=== PATIENT | female | born 1975 | race Caucasian/White ===

== ENCOUNTER 2018-10-05 13:12 | Emergency (ER) | payer OTHER, MEDICAID, SELFPAY ==
[2018-10-05 13:16] VITALS: BP 138/102; PULSE 97; RESP 12; TEMP 36.7; O2SAT 96; BMI 34.4
--- NOTE | 2018-10-05 13:32 | DI.RAD.S_ITS ---
PROCEDURE: XR CHEST 2V INDICATIONS: heart racing, chest heaviness TECHNIQUE: 2 views of the chest were acquired. COMPARISON: None. FINDINGS: Surgical changes and devices: None. Lungs and pleura: Lungs are clear. No pleural effusions or pneumothorax. Mediastinum: Mediastinal contours are normal. Heart size is normal. Bones and chest wall: No suspicious bony abnormalities. Soft tissues appear unremarkable. IMPRESSION: 1. No acute cardiopulmonary disease. Dictated by: Iban Spaulding M.D. on 10/05/2018 at 14:39 Approved by: Iban Spaulding M.D. on 10/05/2018 at 14:39
--- NOTE | 2018-10-05 13:46 | DI.CT.S_ITS ---
PROCEDURE: CT HEAD/BRAIN WO CON INDICATIONS: headache, htn TECHNIQUE: Noncontrast 4.5 mm thick angled axial sections acquired from the foramen magnum to the vertex, with coronal and sagittal reformats. For radiation dose reduction, the following was used: automated exposure control, adjustment of mA and/or kV according to patient size. COMPARISON: None. FINDINGS: Image quality: Excellent. CSF spaces: Basal cisterns are patent. No extra-axial fluid collections. Ventricles are normal in size and shape. Brain: No intracranial hemorrhage, mass, or mass effect. There are scattered small indistinct white matter hypodensities including small hypodense foci within the right internal capsule. There is also mild heterogeneity of the bilateral caudate heads and thalami which may be artifactual. Skull and face: Calvarium and visualized facial bones are intact, without suspicious lesions. Sinuses: Visualized sinuses and mastoids are clear. IMPRESSION: 1. No definite acute intracranial abnormality. 2. Small hypodense foci within the periventricular and subcortical white matter are nonspecific and may represent mild chronic small vessel ischemic changes. 3. Heterogeneous appearance of the caudate heads and thalami bilaterally may be artifactual or represent sequelae of chronic ischemic changes. If clinically indicated, recommend further evaluation with MRI. Dictated by: Iban Spaulding M.D. on 10/05/2018 at 14:12 Approved by: Iban Spaulding M.D. on 10/05/2018 at 14:16
[2018-10-05 13:47] LABS: Add Manual Diff / Slide Review NO; Basophils Absolute Auto 100 /uL (0-100); Basophils Percent Auto 0.9 % (0-2); Eosinophils Absolute Auto 100 /uL (0-450); Eosinophils Percent Auto 1.3 % (2-4); Hematocrit 46.4 % (36-46); Hemoglobin 15.8 g/dL (12.0-16.0); Lymphocytes Absolute Auto 3000 /uL (1100-4500); Lymphocytes Percent Auto 35.6 % (25-40); Mean Corpuscular Hemoglobin 30.1 PG (26-34); Mean Corpuscular Volume 88.6 fL (80-100); Monocytes Absolute Auto 500 /uL (0-900); Monocytes Percent Auto 6.4 % (3-14); Neutrophils Absolute Auto 4700 /uL (1500-7000); Neutrophils Percent Auto 55.8 % (50-75); Platelet Count 395 X10^3/uL (150-400); Red Blood Cell Count 5.24 X10^6/uL (4.0-5.2); Red Cell Distribution Width 13.9 % (11.6-14.8); White Blood Cell Count 8.4 X10^3/uL (4.5-11.0)
[2018-10-05 13:58] LABS: Alanine Aminotransferase 25 IU/L (9-52); Albumin 4.6 g/dL (3.5-5.0); Albumin Globulin Ratio 1.2 (1.0-2.8); Alkaline Phosphatase 82 U/L (38-126); Aspartate Aminotransferase 23 IU/L (14-36); BUN Creatinine Ratio 18.3 (6-22); Bilirubin Total 0.4 mg/dL (0.2-1.3); Blood Urea Nitrogen 11 mg/dL (7-17); Calcium 9.5 mg/dL (8.4-10.2); Carbon Dioxide 26 mmol/L (22-32); Chloride 100 mmol/L (98-107); Creatine Kinase 34 U/L (30-135); Estimated Glomerular Filt Rate > 60.0 mL/min (>60); Globulin 3.8 g/dL (1.7-4.1); Glucose 110 mg/dL (70-100); HEMOLYSIS < 15 (0-50); Potassium 4.1 mmol/L (3.4-5.1); Sodium 137 mmol/L (137-145); Total Protein 8.4 g/dL (6.3-8.2)
[2018-10-05 14:09] VITALS: BP 126/83; PULSE 80; RESP 14; O2SAT 98
[2018-10-05 14:10] LABS: Troponin I < 0.012 ng/mL (0.01-0.034)
[2018-10-05] MEDS: ONDANSETRON 4 MG/2 ML INJ IV (14:34)
[2018-10-05] MEDS: SODIUM CHLORIDE 0.9% 1,000 ML 1000 ML IV (14:34)
[2018-10-05] MEDS: ACETAMINOPHEN 325 MG TABLET 975 MG PO (14:35)
[2018-10-05] MEDS: KETOROLAC 60 MG/2 ML VIAL 30 MG IV (15:04)
[2018-10-05 15:12] LABS: RBC Urine None Seen (0-5/HPF)
[2018-10-05 15:25] LABS: Bacteria Urine Many (>30); Culture Indicated Urine Cult Not Indicated; Squamous Epithelial Cell Urine 5-10 /HPF (0-5/HPF); WBC Urine 1-5/HPF (0-5/HPF)
[2018-10-05 15:55] VITALS: BP 132/81; PULSE 78; RESP 18; O2SAT 98
--- NOTE | 2018-10-05 21:06 | ED.GENADULT ---
HPI - General Adult <ROSI Rosenberg - Last Filed: 10/05/18 21:12> General Chief complaint: Hypertension Stated complaint: Blood Pressure high, not feeling well Time Seen by Provider: 10/05/18 13:48 Source: patient Mode of arrival: ambulatory Limitations: no limitations History of Present Illness HPI narrative: The patient is a 43-year-old female with history of hypertension migraines who presents with a chief complaint of high blood pressure, worst headache of her life and not feeling well. she complains of fever flushing and hot flashes. She states that her blood pressure last night was 180/110 and she had the worst headache of her life. She does have a history of migraines, states that this is worse and that she has not been being treated for her hypertension due to her relocation to the area. She states she was up all night urinating. She denies any overt fevers abdominal pain vomiting or diarrhea. She endorses sensitivity to light as well as nausea. She denies any chest pain, but complains of general malaise. She states she has been off of her hypertensive medication for awhile. Related Data Previous Rx's Medication Instructions Recorded nitrofurantoin monohyd/m-cryst 100 mg PO BID #20 cap 10/05/18 [Macrobid] Review of Systems <ROSI Rosenberg - Last Filed: 10/05/18 21:12> Review of Systems GENERAL: Denies chills, fatigue, malaise, fever, sweats. HEENT: Denies sinus pain, ear pain, sore throat, difficulty swallowing, dizziness. RESPIRATORY: Denies dyspnea, cough, wheezing, hemoptysis, sputum. CARDIOVASCULAR: See HPI GASTROINTESTINAL: Denies nausea, vomiting, abdominal pain, diarrhea, constipation, melena. : Denies dysuria, frequency, incontinence, hematuria, urinary retention. MUSCULOSKELETAL: denies weakness, joint pain, or bony pain SKIN: Denies rash, skin lesions, or other NEUROLOGIC: See HPI PSYCHIATRIC: No concerning psychosocial issues. 12 point review of systems is negative except for those stated above PFSH <ROSI Rosenberg - Last Filed: 10/05/18 21:12> Social History Smoking Status: Never smoker Social History Smoking Status: Never smoker Exam <ROSI Rosenberg - Last Filed: 10/05/18 21:12> Narrative Exam Narrative: GENERAL: This is a well-nourished, well-developed patient, no acute distress HEAD: Atraumatic. Normocephalic. No temporal or scalp tenderness. EYES: Pupils equal round and reactive. Extraocular motions intact. No scleral icterus. No injection or drainage. ENT: Nose without bleeding, purulent drainage or septal hematoma. Throat without erythema, tonsillar hypertrophy or exudate. Uvula midline. Airway patent. NECK: Trachea midline. No JVD or lymphadenopathy. Supple, nontender, no meningeal signs. CARDIOVASCULAR: Regular rate and rhythm without murmurs, gallops, or rubs. RESPIRATORY: Clear to auscultation. Breath sounds equal bilaterally. No wheezes, rales, or rhonchi. No cough. No increased respiratory effort. GASTROINTESTINAL: Abdomen soft, non-tender, nondistended. No hepato-splenomegaly, or palpable masses. No guarding. active bowel sounds. EXTREMITIES: No clubbing, cyanosis, or edema. No joint tenderness, effusion, or edema noted. BACK: Nontender without deformity or crepitance. No flank tenderness. NEURO: AOx3. Cranial nerves grossly intact. Strength is equal upper and lower extremities bilaterally. stable gait. SKIN: No rash or erythema. Initial Vital Signs Initial Vital Signs: Vital Signs Temperature 98.0 F 10/05/18 13:16 Pulse Rate 97 H 10/05/18 13:16 Respiratory Rate 12 10/05/18 13:16 Blood Pressure 138/102 H 10/05/18 13:16 Pulse Oximetry 96 10/05/18 13:16 <Alba Stephens MD - Last Filed: 10/06/18 12:05> Initial Vital Signs Initial Vital Signs: Vital Signs Temperature 98.0 F 10/05/18 13:16 Pulse Rate 97 H 10/05/18 13:16 Respiratory Rate 12 10/05/18 13:16 Blood Pressure 138/102 H 10/05/18 13:16 Pulse Oximetry 96 10/05/18 13:16 Course <ROSI Rosenberg - Last Filed: 10/05/18 21:12> Orders Ordered: Discontinued Medications Acetaminophen (Tylenol) 975 mg PO NOW ONE Stop: 10/05/18 14:13 Last Admin: 10/05/18 14:35 Dose: 975 mg Sodium Chloride (Normal Saline 0.9%) 1,000 mls @ 1,000 mls/hr IV BOLUS ONE Stop: 10/05/18 15:08 Last Infusion: 10/05/18 15:45 Dose: 0 mls/hr Admin: 10/05/18 14:34 Dose: 1,000 mls/hr Ketorolac Tromethamine (Toradol) 30 mg IV NOW ONE Stop: 10/05/18 15:01 Last Admin: 10/05/18 15:04 Dose: 30 mg Ondansetron HCl (Zofran) 4 mg IV NOW ONE Stop: 10/05/18 14:11 Last Admin: 10/05/18 14:34 Dose: 4 mg Vital Signs - 8 hr 10/05/18 13:16 10/05/18 14:09 10/05/18 15:55 Temperature 98.0 F Pulse Rate 97 H 80 78 Respiratory Rate 12 14 18 Blood Pressure 138/102 H 132/81 Blood Pressure [Left Arm] 126/83 Pulse Oximetry 96 98 98 <Alba Stephens MD - Last Filed: 10/06/18 12:05> Orders Ordered: Discontinued Medications Acetaminophen (Tylenol) 975 mg PO NOW ONE Stop: 10/05/18 14:13 Last Admin: 10/05/18 14:35 Dose: 975 mg Sodium Chloride (Normal Saline 0.9%) 1,000 mls @ 1,000 mls/hr IV BOLUS ONE Stop: 10/05/18 15:08 Last Infusion: 10/05/18 15:45 Dose: 0 mls/hr Admin: 10/05/18 14:34 Dose: 1,000 mls/hr Ketorolac Tromethamine (Toradol) 30 mg IV NOW ONE Stop: 10/05/18 15:01 Last Admin: 10/05/18 15:04 Dose: 30 mg Ondansetron HCl (Zofran) 4 mg IV NOW ONE Stop: 10/05/18 14:11 Last Admin: 10/05/18 14:34 Dose: 4 mg Vital Signs - 8 hr 10/05/18 13:16 10/05/18 14:09 10/05/18 15:55 Temperature 98.0 F Pulse Rate 97 H 80 78 Respiratory Rate 12 14 18 Blood Pressure 138/102 H 132/81 Blood Pressure [Left Arm] 126/83 Pulse Oximetry 96 98 98 Medical Decision Making <Linda Bland, CERTIFIED OPHTHALMIC TECHNOLOGIST-BC - Last Filed: 10/05/18 21:12> Lab Data Result diagrams: 10/05/18 13:39 10/05/18 13:39 Lab Results 10/05/18 10/05/18 10/05/18 Range/Units 13:39 13:39 14:45 WBC 8.4 (4.5-11.0) X10^3/uL RBC 5.24 H (4.0-5.2) X10^6/uL Hgb 15.8 (12.0-16.0) g/dL Hct 46.4 H (36-46) % MCV 88.6 (80-100) fL MCH 30.1 (26-34) PG MCHC 34.0 (30-36) % RDW 13.9 (11.6-14.8) % Plt Count 395 (150-400) X10^3/uL Neut % (Auto) 55.8 (50-75) % Lymph % (Auto) 35.6 (25-40) % White % (Auto) 6.4 (3-14) % Eos % (Auto) 1.3 L (2-4) % Baso % (Auto) 0.9 (0-2) % Neut # (Auto) 4700 (6111-5324) /uL Lymph # (Auto) 3000 (1145-5952) /uL White # (Auto) 500 (0-900) /uL Eos # (Auto) 100 (0-450) /uL Baso # (Auto) 100 (0-100) /uL Sodium 137 (137-145) mmol/L Potassium 4.1 (3.4-5.1) mmol/L Chloride 100 (98-107) mmol/L Carbon Dioxide 26 (22-32) mmol/L BUN 11 (7-17) mg/dL Creatinine 0.60 (0.52-1.04) mg/dL Estimated GFR > 60.0 (>60) mL/min BUN/Creatinine Ratio 18.3 (6-22) Glucose 110 H (70-100) mg/dL Calcium 9.5 (8.4-10.2) mg/dL Total Bilirubin 0.4 (0.2-1.3) mg/dL AST 23 (14-36) IU/L ALT 25 (9-52) IU/L Alkaline Phosphatase 82 (38-126) U/L Total Creatine Kinase 34 (30-135) U/L CK-MB (CK-2) TNP CK-MB (CK-2) Rel Index TNP Troponin I < 0.012 (0.01-0.034) ng/mL Total Protein 8.4 H (6.3-8.2) g/dL Albumin 4.6 (3.5-5.0) g/dL Globulin 3.8 (1.7-4.1) g/dL Albumin/Globulin Ratio 1.2 (1.0-2.8) Urine RBC None seen (0-5/HPF) Urine WBC 1-5/hpf (0-5/HPF) Ur Squamous Epith Cells 5-10 /hpf H (0-5/HPF) Urine Bacteria Many (>30) H (None) Ur Culture Indicated? Cult not indicated Point of Care Testing Test Results Negative Urine Dip Bedside Urine Glucose Negative Bedside Urine Bilirubin - Negative Bedside Urine Ketone - Negative Urine Specific [place] 1.025 Bedside Urine Occult Blood - Negative Bedside Urine Protein + 30 Bedside Urine Urobilinogen - Negative Bedside Urine Nitrite - Negative Bedside Urine Leukocytes + 70 Esterase Point of care testing: Point of Care Testing Test Results Negative Urine Dip Bedside Urine Glucose Negative Bedside Urine Bilirubin - Negative Bedside Urine Ketone - Negative Urine Specific [place] 1.025 Bedside Urine Occult Blood - Negative Bedside Urine Protein + 30 Bedside Urine Urobilinogen - Negative Bedside Urine Nitrite - Negative Bedside Urine Leukocytes + 70 Esterase Imaging Data Chest x-ray: Radiologist's impression: [address] [address] XRay Report Signed Patient: Missy Wright MMR#: [id number] : 1975Acct:[id number] Age/Sex: 43 / FDate of Service: 10/05/18 Loc: ED Accession Number: [id number] Procedure: XR chest 2V Ordering Provider: Alba Stephens MD PROCEDURE: XR CHEST 2V INDICATIONS: heart racing, chest heaviness TECHNIQUE: 2 views of the chest were acquired. COMPARISON: None. FINDINGS: Surgical changes and devices: None. Lungs and pleura: Lungs are clear. No pleural effusions or pneumothorax. Mediastinum: Mediastinal contours are normal. Heart size is normal. Bones and chest wall: No suspicious bony abnormalities. Soft tissues appear unremarkable. IMPRESSION: 1. No acute cardiopulmonary disease. Dictated by: Iban Spaulding M.D. on 10/05/2018 at 14:39 Approved by: Iban Spaulding M.D. on 10/05/2018 at 14:39 CT scan - head: Radiologist's impression: [address] [address] [address] Scan Report Signed Patient: Missy Wright MMR#: [id number] : 1975Acct:[id number] Age/Sex: 43 / FDate of Service: 10/05/18 Loc: ED Accession Number: [id number] Procedure: CT head/brain wo con [facility] CT HEAD/BRAIN WO CON INDICATIONS: headache, htn TECHNIQUE: Noncontrast 4.5 mm thick angled axial sections acquired from the foramen magnum to the vertex, with coronal and sagittal reformats. For radiation dose reduction, the following was used: automated exposure control, adjustment of mA and/or kV according to patient size. COMPARISON: None. FINDINGS: Image quality: Excellent. CSF spaces: Basal cisterns are patent. No extra-axial fluid collections. Ventricles are normal in size and shape. Brain: No intracranial hemorrhage, mass, or mass effect. There are scattered small indistinct white matter hypodensities including small hypodense foci within the right internal capsule. There is also mild heterogeneity of the bilateral caudate heads and thalami which may be artifactual. Skull and face: Calvarium and visualized facial bones are intact, without suspicious lesions. Sinuses: Visualized sinuses and mastoids are clear. IMPRESSION: 1. No definite acute intracranial abnormality. 2. Small hypodense foci within the periventricular and subcortical white matter are nonspecific and may represent mild chronic small vessel ischemic changes. 3. Heterogeneous appearance of the caudate heads and thalami bilaterally may be artifactual or represent sequelae of chronic ischemic changes. If clinically indicated, recommend further evaluation with MRI. Dictated by: Iban Spaulding M.D. on 10/05/2018 at 14:12 Approved by: Iban Spaulding M.D. on 10/05/2018 at 14:16 ECG Data Attestation: I personally reviewed and interpreted this ECG as follows: MDM Narrative Medical decision making narrative: The patient presents with vague complaints including severe headache with her hypertension episode. Thus I did get a head CT which shows no acute intracranial abnormality. There are signs of chronic changes, which I reviewed with Dr Stephens as well as the patient. Her labs are grossly normal. she has a normal troponin, her electrolytes are within normal limits, and she is not anemic. She does have lots of bacteria on her urinalysis This I will initiate treatment with Macrobid with a urine culture pending. I discussed at length signs of worsening including flank pain and fevers. This could explain her general malaise over the past few days. She has no signs of renal injury on her labs despite her hypertension episodes. I encouraged her to follow up with primary care provider and discussed return precautions including shortness of breath chest pain concern of heart attack or stroke. Patient was treated for her headache with Toradol with good result. Patient was discharged mother with no questions or concerns upon discharge and stated understanding of return precautions as well as following up with primary care. <Alba Stephens MD - Last Filed: 10/06/18 12:05> Lab Data Lab Results 10/05/18 10/05/18 10/05/18 Range/Units 13:39 13:39 14:45 WBC 8.4 (4.5-11.0) X10^3/uL RBC 5.24 H (4.0-5.2) X10^6/uL Hgb 15.8 (12.0-16.0) g/dL Hct 46.4 H (36-46) % MCV 88.6 (80-100) fL MCH 30.1 (26-34) PG MCHC 34.0 (30-36) % RDW 13.9 (11.6-14.8) % Plt Count 395 (150-400) X10^3/uL Neut % (Auto) 55.8 (50-75) % Lymph % (Auto) 35.6 (25-40) % White % (Auto) 6.4 (3-14) % Eos % (Auto) 1.3 L (2-4) % Baso % (Auto) 0.9 (0-2) % Neut # (Auto) 4700 (2975-1760) /uL Lymph # (Auto) 3000 (5383-5923) /uL White # (Auto) 500 (0-900) /uL Eos # (Auto) 100 (0-450) /uL Baso # (Auto) 100 (0-100) /uL Sodium 137 (137-145) mmol/L Potassium 4.1 (3.4-5.1) mmol/L Chloride 100 (98-107) mmol/L Carbon Dioxide 26 (22-32) mmol/L BUN 11 (7-17) mg/dL Creatinine 0.60 (0.52-1.04) mg/dL Estimated GFR > 60.0 (>60) mL/min BUN/Creatinine Ratio 18.3 (6-22) Glucose 110 H (70-100) mg/dL Calcium 9.5 (8.4-10.2) mg/dL Total Bilirubin 0.4 (0.2-1.3) mg/dL AST 23 (14-36) IU/L ALT 25 (9-52) IU/L Alkaline Phosphatase 82 (38-126) U/L Total Creatine Kinase 34 (30-135) U/L CK-MB (CK-2) TNP CK-MB (CK-2) Rel Index TNP Troponin I < 0.012 (0.01-0.034) ng/mL Total Protein 8.4 H (6.3-8.2) g/dL Albumin 4.6 (3.5-5.0) g/dL Globulin 3.8 (1.7-4.1) g/dL Albumin/Globulin Ratio 1.2 (1.0-2.8) Urine RBC None seen (0-5/HPF) Urine WBC 1-5/hpf (0-5/HPF) Ur Squamous Epith Cells 5-10 /hpf H (0-5/HPF) Urine Bacteria Many (>30) H (None) Ur Culture Indicated? Cult not indicated Point of Care Testing Test Results Negative Urine Dip Bedside Urine Glucose Negative Bedside Urine Bilirubin - Negative Bedside Urine Ketone - Negative Urine Specific [place] 1.025 Bedside Urine Occult Blood - Negative Bedside Urine Protein + 30 Bedside Urine Urobilinogen - Negative Bedside Urine Nitrite - Negative Bedside Urine Leukocytes + 70 Esterase Point of care testing: Point of Care Testing Test Results Negative Urine Dip Bedside Urine Glucose Negative Bedside Urine Bilirubin - Negative Bedside Urine Ketone - Negative Urine Specific [place] 1.025 Bedside Urine Occult Blood - Negative Bedside Urine Protein + 30 Bedside Urine Urobilinogen - Negative Bedside Urine Nitrite - Negative Bedside Urine Leukocytes + 70 Esterase Discharge Plan Departure Patient Disposition: Home Clinical Impression: UTI (urinary tract infection) Qualifiers: Urinary tract infection type: site unspecified Hematuria presence: without hematuria Qualified Code(s): N39.0 - Urinary tract infection, site not specified Headache Qualifiers: Headache type: other headache syndrome Qualified Code(s): G44.89 - Other headache syndrome Discharge Date/Time: 10/05/18 15:55 Interventions: ED Discharge Assessment Last Done: 10/05/18 15:55 Instructions: DI for Urinary Tract Infection (UTI), DI for Headache Activity Restrictions/Additional Instructions: Your urine came back with many bacteria, so I am starting you on a antibiotic for urinary tract infection. Otherwise her blood pressure was good here, your chest x-ray was normal, your kidney function was good. Please follow up with the [facility] at [phone] in order to help get a primary care provider. Please come back to the emergency department for concern of heart attack or stroke, or acute concerns such as worsening of a urinary tract infection i.e. flank pain inability keep down fluids etc. Please put fluids and rest. Please come back to emergency department if you have any acute concerns. Prescriptions: New nitrofurantoin monohyd/m-cryst [Macrobid] 100 mg capsule 100 mg PO BID Qty: 20 RF: 0
--- NOTE | 2018-10-05 21:12 | ED_ITS ---
HPI - General Adult <ROSI Rosenberg - Last Filed: 10/05/18 21:12> General Chief complaint: Hypertension Stated complaint: Blood Pressure high, not feeling well Time Seen by Provider: 10/05/18 13:48 Source: patient Mode of arrival: ambulatory Limitations: no limitations History of Present Illness HPI narrative: The patient is a 43-year-old female with history of hypertension migraines who presents with a chief complaint of high blood pressure, worst headache of her life and not feeling well. she complains of fever flushing and hot flashes. She states that her blood pressure last night was 180/110 and she had the worst headache of her life. She does have a history of migraines, states that this is worse and that she has not been being treated for her hypertension due to her relocation to the area. She states she was up all night urinating. She denies any overt fevers abdominal pain vomiting or diarrhea. She endorses sensitivity to light as well as nausea. She denies any chest pain, but complains of general malaise. She states she has been off of her hypertensive medication for awhile. Related Data Previous Rx's Medication Instructions Recorded nitrofurantoin monohyd/m-cryst 100 mg PO BID #20 cap 10/05/18 [Macrobid] Review of Systems <ROSI Rosenberg - Last Filed: 10/05/18 21:12> Review of Systems GENERAL: Denies chills, fatigue, malaise, fever, sweats. HEENT: Denies sinus pain, ear pain, sore throat, difficulty swallowing, dizziness. RESPIRATORY: Denies dyspnea, cough, wheezing, hemoptysis, sputum. CARDIOVASCULAR: See HPI GASTROINTESTINAL: Denies nausea, vomiting, abdominal pain, diarrhea, constipation, melena. : Denies dysuria, frequency, incontinence, hematuria, urinary retention. MUSCULOSKELETAL: denies weakness, joint pain, or bony pain SKIN: Denies rash, skin lesions, or other NEUROLOGIC: See HPI PSYCHIATRIC: No concerning psychosocial issues. 12 point review of systems is negative except for those stated above PFSH <ROSI Rosenberg - Last Filed: 10/05/18 21:12> Social History Smoking Status: Never smoker Social History Smoking Status: Never smoker Exam <ROSI Rosenberg - Last Filed: 10/05/18 21:12> Narrative Exam Narrative: GENERAL: This is a well-nourished, well-developed patient, no acute distress HEAD: Atraumatic. Normocephalic. No temporal or scalp tenderness. EYES: Pupils equal round and reactive. Extraocular motions intact. No scleral icterus. No injection or drainage. ENT: Nose without bleeding, purulent drainage or septal hematoma. Throat without erythema, tonsillar hypertrophy or exudate. Uvula midline. Airway patent. NECK: Trachea midline. No JVD or lymphadenopathy. Supple, nontender, no meningeal signs. CARDIOVASCULAR: Regular rate and rhythm without murmurs, gallops, or rubs. RESPIRATORY: Clear to auscultation. Breath sounds equal bilaterally. No wheezes, rales, or rhonchi. No cough. No increased respiratory effort. GASTROINTESTINAL: Abdomen soft, non-tender, nondistended. No hepato- splenomegaly, or palpable masses. No guarding. active bowel sounds. EXTREMITIES: No clubbing, cyanosis, or edema. No joint tenderness, effusion, or edema noted. BACK: Nontender without deformity or crepitance. No flank tenderness. NEURO: AOx3. Cranial nerves grossly intact. Strength is equal upper and lower extremities bilaterally. stable gait. SKIN: No rash or erythema. Initial Vital Signs Initial Vital Signs: Vital Signs Temperature 98.0 F 10/05/18 13:16 Pulse Rate 97 H 10/05/18 13:16 Respiratory Rate 12 10/05/18 13:16 Blood Pressure 138/102 H 10/05/18 13:16 Pulse Oximetry 96 10/05/18 13:16 <Alba Stephens MD - Last Filed: 10/06/18 12:05> Initial Vital Signs Initial Vital Signs: Vital Signs Temperature 98.0 F 10/05/18 13:16 Pulse Rate 97 H 10/05/18 13:16 Respiratory Rate 12 10/05/18 13:16 Blood Pressure 138/102 H 10/05/18 13:16 Pulse Oximetry 96 10/05/18 13:16 Course <ROSI Rosenberg - Last Filed: 10/05/18 21:12> Orders Ordered: Discontinued Medications Acetaminophen (Tylenol) 975 mg PO NOW ONE Stop: 10/05/18 14:13 Last Admin: 10/05/18 14:35 Dose: 975 mg Sodium Chloride (Normal Saline 0.9%) 1,000 mls @ 1,000 mls/hr IV BOLUS ONE Stop: 10/05/18 15:08 Last Infusion: 10/05/18 15:45 Dose: 0 mls/hr Admin: 10/05/18 14:34 Dose: 1,000 mls/hr Ketorolac Tromethamine (Toradol) 30 mg IV NOW ONE Stop: 10/05/18 15:01 Last Admin: 10/05/18 15:04 Dose: 30 mg Ondansetron HCl (Zofran) 4 mg IV NOW ONE Stop: 10/05/18 14:11 Last Admin: 10/05/18 14:34 Dose: 4 mg Vital Signs - 8 hr 10/05/18 13:16 10/05/18 14:09 10/05/18 15:55 Temperature 98.0 F Pulse Rate 97 H 80 78 Respiratory Rate 12 14 18 Blood Pressure 138/102 H 132/81 Blood Pressure [Left Arm] 126/83 Pulse Oximetry 96 98 98 <Alba Stephens MD - Last Filed: 10/06/18 12:05> Orders Ordered: Discontinued Medications Acetaminophen (Tylenol) 975 mg PO NOW ONE Stop: 10/05/18 14:13 Last Admin: 10/05/18 14:35 Dose: 975 mg Sodium Chloride (Normal Saline 0.9%) 1,000 mls @ 1,000 mls/hr IV BOLUS ONE Stop: 10/05/18 15:08 Last Infusion: 10/05/18 15:45 Dose: 0 mls/hr Admin: 10/05/18 14:34 Dose: 1,000 mls/hr Ketorolac Tromethamine (Toradol) 30 mg IV NOW ONE Stop: 10/05/18 15:01 Last Admin: 10/05/18 15:04 Dose: 30 mg Ondansetron HCl (Zofran) 4 mg IV NOW ONE Stop: 10/05/18 14:11 Last Admin: 10/05/18 14:34 Dose: 4 mg Vital Signs - 8 hr 10/05/18 13:16 10/05/18 14:09 10/05/18 15:55 Temperature 98.0 F Pulse Rate 97 H 80 78 Respiratory Rate 12 14 18 Blood Pressure 138/102 H 132/81 Blood Pressure [Left Arm] 126/83 Pulse Oximetry 96 98 98 Medical Decision Making <Linda Bland, COTTAGE ATTENDANT-BC - Last Filed: 10/05/18 21:12> Lab Data Result diagrams: 10/05/18 13:39 10/05/18 13:39 Lab Results 10/05/18 10/05/18 10/05/18 Range/Units 13:39 13:39 14:45 WBC 8.4 (4.5-11.0) X10^3/uL RBC 5.24 H (4.0-5.2) X10^6/uL Hgb 15.8 (12.0-16.0) g/dL Hct 46.4 H (36-46) % MCV 88.6 (80-100) fL MCH 30.1 (26-34) PG MCHC 34.0 (30-36) % RDW 13.9 (11.6-14.8) % Plt Count 395 (150-400) X10^3/uL Neut % (Auto) 55.8 (50-75) % Lymph % (Auto) 35.6 (25-40) % [place] % (Auto) 6.4 (3-14) % Eos % (Auto) 1.3 L (2-4) % Baso % (Auto) 0.9 (0-2) % Neut # (Auto) 4700 (2400-7312) /uL Lymph # (Auto) 3000 (9471-6305) /uL [place] # (Auto) 500 (0-900) /uL Eos # (Auto) 100 (0-450) /uL Baso # (Auto) 100 (0-100) /uL Sodium 137 (137-145) mmol/L Potassium 4.1 (3.4-5.1) mmol/L Chloride 100 (98-107) mmol/L Carbon Dioxide 26 (22-32) mmol/L BUN 11 (7-17) mg/dL Creatinine 0.60 (0.52-1.04) mg/dL Estimated GFR > 60.0 (>60) mL/min BUN/Creatinine Ratio 18.3 (6-22) Glucose 110 H (70-100) mg/dL Calcium 9.5 (8.4-10.2) mg/dL Total Bilirubin 0.4 (0.2-1.3) mg/dL AST 23 (14-36) IU/L ALT 25 (9-52) IU/L Alkaline Phosphatase 82 (38-126) U/L Total Creatine Kinase 34 (30-135) U/L CK-MB (CK-2) TNP CK-MB (CK-2) Rel Index TNP Troponin I < 0.012 (0.01-0.034) ng/mL Total Protein 8.4 H (6.3-8.2) g/dL Albumin 4.6 (3.5-5.0) g/dL Globulin 3.8 (1.7-4.1) g/dL Albumin/Globulin Ratio 1.2 (1.0-2.8) Urine RBC None seen (0-5/HPF) Urine WBC 1-5/hpf (0-5/HPF) Ur Squamous Epith Cells 5-10 /hpf H (0-5/HPF) Urine Bacteria Many (>30) H (None) Ur Culture Indicated? Cult not indicated Point of Care Testing Test Results Negative Urine Dip Bedside Urine Glucose Negative Bedside Urine Bilirubin - Negative Bedside Urine Ketone - Negative Urine Specific [place] 1.025 Bedside Urine Occult Blood - Negative Bedside Urine Protein + 30 Bedside Urine Urobilinogen - Negative Bedside Urine Nitrite - Negative Bedside Urine Leukocytes + 70 Esterase Point of care testing: Point of Care Testing Test Results Negative Urine Dip Bedside Urine Glucose Negative Bedside Urine Bilirubin - Negative Bedside Urine Ketone - Negative Urine Specific [place] 1.025 Bedside Urine Occult Blood - Negative Bedside Urine Protein + 30 Bedside Urine Urobilinogen - Negative Bedside Urine Nitrite - Negative Bedside Urine Leukocytes + 70 Esterase Imaging Data Chest x-ray: Radiologist's impression: [address] [address] XRay Report Signed Patient: Missy Wright MMR#: [id number] : 1975Acct:[id number] Age/Sex: 43 / FDate of Service: 10/05/18 Loc: ED Accession Number: [id number] Procedure: XR chest 2V Ordering Provider: Alba Stephens MD PROCEDURE: XR CHEST 2V INDICATIONS: heart racing, chest heaviness TECHNIQUE: 2 views of the chest were acquired. COMPARISON: None. FINDINGS: Surgical changes and devices: None. Lungs and pleura: Lungs are clear. No pleural effusions or pneumothorax. Mediastinum: Mediastinal contours are normal. Heart size is normal. Bones and chest wall: No suspicious bony abnormalities. Soft tissues appear unremarkable. IMPRESSION: 1. No acute cardiopulmonary disease. Dictated by: Iban Spaulding M.D. on 10/05/2018 at 14:39 Approved by: Iban Spaulding M.D. on 10/05/2018 at 14:39 CT scan - head: Radiologist's impression: [address] [address] [address] Scan Report Signed Patient: Missy Wright MMR#: [id number] : 1975Acct:[id number] Age/Sex: 43 / FDate of Service: 10/05/18 Loc: ED Accession Number: [id number] Procedure: CT head/brain wo con [facility] CT HEAD/BRAIN WO CON INDICATIONS: headache, htn TECHNIQUE: Noncontrast 4.5 mm thick angled axial sections acquired from the foramen magnum to the vertex, with coronal and sagittal reformats. For radiation dose reduction, the following was used: automated exposure control, adjustment of mA and/or kV according to patient size. COMPARISON: None. FINDINGS: Image quality: Excellent. CSF spaces: Basal cisterns are patent. No extra-axial fluid collections. Ventricles are normal in size and shape. Brain: No intracranial hemorrhage, mass, or mass effect. There are scattered small indistinct white matter hypodensities including small hypodense foci within the right internal capsule. There is also mild heterogeneity of the bilateral caudate heads and thalami which may be artifactual. Skull and face: Calvarium and visualized facial bones are intact, without suspicious lesions. Sinuses: Visualized sinuses and mastoids are clear. IMPRESSION: 1. No definite acute intracranial abnormality. 2. Small hypodense foci within the periventricular and subcortical white matter are nonspecific and may represent mild chronic small vessel ischemic changes. 3. Heterogeneous appearance of the caudate heads and thalami bilaterally may be artifactual or represent sequelae of chronic ischemic changes. If clinically indicated, recommend further evaluation with MRI. Dictated by: Iban Spaulding M.D. on 10/05/2018 at 14:12 Approved by: Iban Spaulding M.D. on 10/05/2018 at 14:16 ECG Data Attestation: I personally reviewed and interpreted this ECG as follows: MDM Narrative Medical decision making narrative: The patient presents with vague complaints including severe headache with her hypertension episode. Thus I did get a head CT which shows no acute intracranial abnormality. There are signs of chronic changes, which I reviewed with Dr Stephens as well as the patient. Her labs are grossly normal. she has a normal troponin, her electrolytes are within normal limits, and she is not anemic. She does have lots of bacteria on her urinalysis This I will initiate treatment with Macrobid with a urine culture pending. I discussed at length signs of worsening including flank pain and fevers. This could explain her general malaise over the past few days. She has no signs of renal injury on her labs despite her hypertension episodes. I encouraged her to follow up with primary care provider and discussed return precautions including shortness of breath chest pain concern of heart attack or stroke. Patient was treated for her headache with Toradol with good result. Patient was discharged mother with no questions or concerns upon discharge and stated understanding of return precautions as well as following up with primary care. <Alba Stephens MD - Last Filed: 10/06/18 12:05> Lab Data Lab Results 10/05/18 10/05/18 10/05/18 Range/Units 13:39 13:39 14:45 WBC 8.4 (4.5-11.0) X10^3/uL RBC 5.24 H (4.0-5.2) X10^6/uL Hgb 15.8 (12.0-16.0) g/dL Hct 46.4 H (36-46) % MCV 88.6 (80-100) fL MCH 30.1 (26-34) PG MCHC 34.0 (30-36) % RDW 13.9 (11.6-14.8) % Plt Count 395 (150-400) X10^3/uL Neut % (Auto) 55.8 (50-75) % Lymph % (Auto) 35.6 (25-40) % [place] % (Auto) 6.4 (3-14) % Eos % (Auto) 1.3 L (2-4) % Baso % (Auto) 0.9 (0-2) % Neut # (Auto) 4700 (6676-7027) /uL Lymph # (Auto) 3000 (3145-7894) /uL [place] # (Auto) 500 (0-900) /uL Eos # (Auto) 100 (0-450) /uL Baso # (Auto) 100 (0-100) /uL Sodium 137 (137-145) mmol/L Potassium 4.1 (3.4-5.1) mmol/L Chloride 100 (98-107) mmol/L Carbon Dioxide 26 (22-32) mmol/L BUN 11 (7-17) mg/dL Creatinine 0.60 (0.52-1.04) mg/dL Estimated GFR > 60.0 (>60) mL/min BUN/Creatinine Ratio 18.3 (6-22) Glucose 110 H (70-100) mg/dL Calcium 9.5 (8.4-10.2) mg/dL Total Bilirubin 0.4 (0.2-1.3) mg/dL AST 23 (14-36) IU/L ALT 25 (9-52) IU/L Alkaline Phosphatase 82 (38-126) U/L Total Creatine Kinase 34 (30-135) U/L CK-MB (CK-2) TNP CK-MB (CK-2) Rel Index TNP Troponin I < 0.012 (0.01-0.034) ng/mL Total Protein 8.4 H (6.3-8.2) g/dL Albumin 4.6 (3.5-5.0) g/dL Globulin 3.8 (1.7-4.1) g/dL Albumin/Globulin Ratio 1.2 (1.0-2.8) Urine RBC None seen (0-5/HPF) Urine WBC 1-5/hpf (0-5/HPF) Ur Squamous Epith Cells 5-10 /hpf H (0-5/HPF) Urine Bacteria Many (>30) H (None) Ur Culture Indicated? Cult not indicated Point of Care Testing Test Results Negative Urine Dip Bedside Urine Glucose Negative Bedside Urine Bilirubin - Negative Bedside Urine Ketone - Negative Urine Specific [place] 1.025 Bedside Urine Occult Blood - Negative Bedside Urine Protein + 30 Bedside Urine Urobilinogen - Negative Bedside Urine Nitrite - Negative Bedside Urine Leukocytes + 70 Esterase Point of care testing: Point of Care Testing Test Results Negative Urine Dip Bedside Urine Glucose Negative Bedside Urine Bilirubin - Negative Bedside Urine Ketone - Negative Urine Specific [place] 1.025 Bedside Urine Occult Blood - Negative Bedside Urine Protein + 30 Bedside Urine Urobilinogen - Negative Bedside Urine Nitrite - Negative Bedside Urine Leukocytes + 70 Esterase Discharge Plan Departure Patient Disposition: Home Clinical Impression: UTI (urinary tract infection) Qualifiers: Urinary tract infection type: site unspecified Hematuria presence: without hematuria Qualified Code(s): N39.0 - Urinary tract infection, site not specified Headache Qualifiers: Headache type: other headache syndrome Qualified Code(s): G44.89 - Other headache syndrome Discharge Date/Time: 10/05/18 15:55 Interventions: ED Discharge Assessment Last Done: 10/05/18 15:55 Instructions: DI for Urinary Tract Infection (UTI), DI for Headache Activity Restrictions/Additional Instructions: Your urine came back with many bacteria, so I am starting you on a antibiotic for urinary tract infection. Otherwise her blood pressure was good here, your chest x-ray was normal, your kidney function was good. Please follow up with the [facility] at [phone] in order to help get a primary care provider. Please come back to the emergency department for concern of heart a ttack or stroke, or acute concerns such as worsening of a urinary tract infection i.e. flank pain inability keep down fluids etc. Please put fluids and rest. Please come back to emergency department if you have any acute concerns. Prescriptions: New nitrofurantoin monohyd/m-cryst [Macrobid] 100 mg capsule 100 mg PO BID Qty: 20 RF: 0
== END 2018-10-05 15:55 | disposition home or self-care (01) ==
PROVIDERS: Emergency Medicine; Emergency Provider Nurse Practitioner Family
DX: N39.0 Urinary tract infection, site not specified (principal); G44.89 Other headache syndrome; R03.0 Elevated blood-pressure reading, without diagnosis of hypertension; R53.81 Other malaise; R11.0 Nausea
CPT/HCPCS: 70450; 71046; 80053; 81003; 81015; 81025; 82550; 84484; 85025; 87086; 93005; 96361; 96374; 96375; 99283; 99285; J1885; J2405

== ENCOUNTER 2019-09-13 11:53 | Emergency (ER) | payer OTHER, MEDICAID, SELFPAY ==
[2019-09-13 12:06] VITALS: BP 149/88; PULSE 117; RESP 18; TEMP 36.2; O2SAT 97
[2019-09-13] MEDS: KETOROLAC 60 MG/2 ML VIAL 30 MG IM (12:28)
[2019-09-13 12:54] VITALS: BP 131/89; PULSE 97; O2SAT 97
--- NOTE | 2019-09-13 13:06 | ED.DENTAL ---
HPI - Dental/Oral <RONAN Kitchen - Last Filed: 09/13/19 22:04> General Chief complaint: Dental/Oral Stated complaint: bottom right 2 tooth broke off and hurting Time Seen by Provider: 09/13/19 11:54 Source: patient Mode of arrival: Ambulatory Limitations: no limitations History of Present Illness HPI Narrative: 43-year-old female presenting to the emergency department complaining of right-sided lower dental pain for the past 2 days. She states she was eating chips and more of her tooth broke. She states she has a history of caries. She states the pain is a dull aching 8/10 that is worse with movement and eating. She has been taking Excedrin because she does not have ibuprofen which has helped some but the pain is still worsening. She states she has tried to call different dentist's office but was denies an appointment due to limited office hours during the ID- epidemic. Patient denies any fevers, chills, nausea, vomiting, diarrhea, chest pain, shortness of breath, or any other concerns. Related Data Previous Rx's Medication Instructions Recorded nitrofurantoin monohyd/m-cryst 100 mg PO BID #20 cap 10/05/18 [Macrobid] ibuprofen 400 mg PO Q6H PRN #20 tab 09/13/19 penicillin V potassium 500 mg PO QID 7 Days #28 tab 09/13/19 Allergies Allergy/AdvReac Type Severity Reaction Status Date / Time carbamazepine [From Tegretol] Allergy Verified 09/13/19 12:14 clindamycin Allergy Verified 09/13/19 12:14 erythromycin base Allergy Verified 09/13/19 12:14 prochlorperazine Allergy Verified 09/13/19 12:14 [From Compazine] Review of Systems <RONAN Kitchen - Last Filed: 09/13/19 22:04> Review of Systems Narrative: REVIEW OF SYSTEMS: GENERAL: Denies fevers. HENT: No head trauma or hearing loss. Reports tooth pain, see HPI. EYES: No loss of vision, double vision, eye pain, irritation or discharge. CARDIOVASCULAR: No chest pain or syncope. RESPIRATORY: No shortness of breath. GASTROINTESTINAL: No nausea, vomiting, diarrhea, or constipation. MUSCULOSKELETAL: No weakness or injury. INTEGUMENTARY: No rash, lesions, or pruritus. Patient History <RONAN Kitchen - Last Filed: 09/13/19 22:04> Medical History No significant medical problems (Acute) Social History Smoking Status: Never smoker Smoking Status: Never smoker alcohol intake frequency: 0-2 drinks per day Substance Use Type: does not use Exam <RONAN Kitchen - Last Filed: 09/13/19 22:04> Initial Vital Signs Initial Vital Signs: Vital Signs Temperature 97.2 F L 09/13/19 12:06 Pulse Rate 117 H 09/13/19 12:06 Respiratory Rate 18 09/13/19 12:06 Blood Pressure 149/88 H 09/13/19 12:06 Pulse Oximetry 97 09/13/19 12:06 PHYSICAL EXAMINATION: GENERAL: Well groomed, alert, and cooperative. Answers questions promptly and appropriately. Vital signs noted. HENT: Normocephalic, atraumatic. Majority of tooth #26 was fracture with surrounding gingiva erythema, caries and erythema noted to #27 and #28. EYES: Conjunctiva pink, sclera white, no periorbital swelling. CHEST: Normal to inspection and without deformities. CARDIOVASCULAR: Regular rate. RESPIRATORY: Normal respiratory rate, trachea midline, airway patent. No stridor, nasal flaring or accessory muscle use. MUSCULOSKELETAL: Normal gait and coordination. Equal tone and mass bilaterally. EXTREMITIES: CMS intact. Moves all extremities. SKIN: Warm, dry, soft, appropriate color for ethnicity. No lesions, rashes, or wounds. NEURO: Alert and Oriented X 3. Good coordination. No ataxia, or sensory deficits, or cognitive issues. <Rupa Patel MD - Last Filed: 09/14/19 06:58> Initial Vital Signs Initial Vital Signs: Vital Signs Temperature 97.2 F L 09/13/19 12:06 Pulse Rate 117 H 09/13/19 12:06 Respiratory Rate 18 09/13/19 12:06 Blood Pressure 149/88 H 09/13/19 12:06 Pulse Oximetry 97 09/13/19 12:06 Course <RONAN Kitchen - Last Filed: 09/13/19 22:04> Course Course Narrative: I attempted to place dental paste on the area, this would not stick. Orders Ordered: Discontinued Medications Ketorolac Tromethamine (Toradol) 30 mg IM NOW ONE Stop: 09/13/19 12:16 Last Admin: 09/13/19 12:28 Dose: 30 mg Documented by: KIKI Consultations Consultation #1: Patient staffed Dr. Patel. Vital Signs Vital signs: Vital Signs - 8 hr 09/13/19 12:06 09/13/19 12:54 Temperature 97.2 F L Pulse Rate 117 H 97 H Respiratory Rate 18 Blood Pressure 149/88 H 131/89 Pulse Oximetry 97 97 <Rupa Patel MD - Last Filed: 09/14/19 06:58> Orders Ordered: Discontinued Medications Ketorolac Tromethamine (Toradol) 30 mg IM NOW ONE Stop: 09/13/19 12:16 Last Admin: 09/13/19 12:28 Dose: 30 mg Documented by: KIKI Vital Signs Vital signs: Vital Signs - 8 hr 09/13/19 12:06 09/13/19 12:54 Temperature 97.2 F L Pulse Rate 117 H 97 H Respiratory Rate 18 Blood Pressure 149/88 H 131/89 Pulse Oximetry 97 97 MDM - Dental/Oral <RONAN Kitchen - Last Filed: 09/13/19 22:04> Medical Records Attestation: I reviewed the patient's medical records. Lab Data Attestation: I reviewed the patient's lab results. MDM Narrative Medical decision making narrative: 43-year-old female presenting to the emergency department for any fracture to apparent previous caries. Erythema and swelling around the surrounding gingiva suggesting infection which I suspect is contributing to her pain. Attempted to place dental paste over the area, I did not have any success with the sticking. Patient was prescribed penicillin to treat the infection, she was encouraged to use dental wax to cover the area to help desensitized the nerve. Patient was also given a prescription for ibuprofen per request. She was given Toradol help with pain in the emergency department. She is encouraged to follow up with a dentist as soon as possible, pending the current pending mixed circumstances. Suspect this is most likely a chronic problem due to previous other caries and the nature of the tooth fracture, as well as that occurred while eating a trip. Strict return precautions given for new or worsening symptoms. Initially, patient had an elevated heart rate of 117, upon discharge her heart rate was 97, suspect this is most likely due to a pain or anxiety responds upon admission. Do not suspect a sepsis due to lack of fever as well as patient is well-appearing. Discharge Plan Departure Patient Disposition: Home Clinical Impression: Infected tooth Fracture of tooth Qualifiers: Encounter type: initial encounter Fracture type: closed Qualified Code(s): S02.5XXA - Fracture of tooth (traumatic), initial encounter for closed fracture Discharge Date/Time: 09/13/19 12:54 Instructions: Tooth Decay, DI for Fractured Tooth Activity Restrictions/Additional Instructions: Thank you for entrusting me with your care today. As discussed, it appears that you have a tooth infection. I prescribed you antibiotics and ibuprofen. Please take these as directed. I suggest getting dental wax and applying this to the area multiple times a day to help with pain. Please follow-up with your dentist when possible, I understand that this is difficult as many offices are closed. Return emergency department for any new or worsening symptoms such high fevers, chest pain, uncontrollable vomiting, or any other concerns. Prescriptions: New penicillin V potassium 500 mg tablet 500 mg PO QID 7 Days Qty: 28 RF: 0 ibuprofen 400 mg tablet 400 mg PO Q6H PRN (Reason: Tooth pain) Qty: 20 RF: 0 No Action nitrofurantoin monohyd/m-cryst [Macrobid] 100 mg capsule 100 mg PO BID Qty: 20 RF: 0
== END 2019-09-13 12:54 | disposition home or self-care (01) ==
PROVIDERS: Emergency Provider Nurse Practitioner
DX: K04.7 Periapical abscess without sinus (principal); S02.5XXA Fracture of tooth (traumatic), initial encounter for closed fracture
CPT/HCPCS: 96372; 99283; J1885

== ENCOUNTER 2023-05-14 23:59 | Emergency (ER) | payer OTHER, MEDICAID, SELFPAY ==
[2023-05-15 00:06] VITALS: BP 175/91; PULSE 111; RESP 16; TEMP 36.4; O2SAT 94; BMI 39.1
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
[2023-05-15 01:40] LABS: Add Manual Diff / Slide Review NO; Basophils Absolute Auto 100 /uL (0-100); Basophils Percent Auto 0.6 % (0-2); Eosinophils Absolute Auto 0 /uL (0-450); Eosinophils Percent Auto 0.5 % (2-4); Hematocrit 36.7 % (36-46); Hemoglobin 12.3 g/dL (12.0-16.0); Lymphocytes Absolute Auto 1300 /uL (1100-4500); Lymphocytes Percent Auto 14.4 % (25-40); Mean Corpuscular HGB Conc 33.5 % (30-36); Mean Corpuscular Volume 89.4 fL (80-100); Monocytes Absolute Auto 800 /uL (0-900); Monocytes Percent Auto 9.2 % (3-14); Neutrophils Absolute Auto 6900 /uL (1500-7000); Neutrophils Percent Auto 75.3 % (50-75); Platelet Count 337 X10^3/uL (150-400); Red Blood Cell Count 4.11 X10^6/uL (4.0-5.2); White Blood Cell Count 9.2 X10^3/uL (4.5-11.0)
[2023-05-15 01:53] LABS: Alanine Aminotransferase 42 IU/L (<35); Albumin 4.3 g/dL (3.5-5.0); Albumin Globulin Ratio 1.3 (1.0-2.8); Alkaline Phosphatase 98 U/L (38-126); Aspartate Aminotransferase 33 IU/L (14-36); BUN Creatinine Ratio 23.2 (6-22); Bilirubin Total 1.1 mg/dL (0.2-1.3); Blood Urea Nitrogen 13 mg/dL (7-17); Calcium 9.3 mg/dL (8.4-10.2); Carbon Dioxide 24 mmol/L (22-32); Chloride 103 mmol/L (98-107); Estimated Glomerular Filt Rate > 60 mL/min (>60); Globulin 3.4 g/dL (1.7-4.1); Glucose 90 mg/dL (70-100); HEMOLYSIS < 15 (0-50); Potassium 3.2 mmol/L (3.4-5.1); Sodium 137 mmol/L (137-145); Total Protein 7.7 g/dL (6.3-8.2)
[2023-05-15 01:55] LABS: Lipase 40 U/L (23-300)
--- NOTE | 2023-05-15 02:38 | PC.NURSE ---
pt to CT per wc
[2023-05-15] MEDS: KETOROLAC 30 MG/ML VIAL IV (04:00)
[2023-05-15 04:23] VITALS: BP 112/62; PULSE 82; RESP 18; O2SAT 98
== END 2023-05-15 04:24 | disposition home or self-care (01) ==
PROVIDERS: Emergency Provider Emergency Medicine
DX: S70.01XA Contusion of right hip, initial encounter (principal); S16.1XXA Strain of muscle, fascia and tendon at neck level, initial encounter; V48.1XXA Car passenger injured in noncollision transport accident in nontraffic accident, initial encounter
CPT/HCPCS: 36415; 70450; 72125; 74177; 80053; 83690; 85025; 96374; 99284; 99285; J1885; Q9967